=== PATIENT | female | born 1970 | race Caucasian/White ===

== ENCOUNTER 2021-09-18 17:30 | Emergency (ER) | payer MEDICARE, OTHER ==
[~2021-09-18] VITALS: Ht 154.9 cm; Wt 98.0 kg
[2021-09-18 17:46] VITALS: BP 154/93
[2021-09-18] MEDS ORDERED: BACITRACIN OINT 500 UNITS/GM PKT TP ONE (18:35)
[2021-09-18] MEDS ORDERED: AMOX-1000 PO (18:49)
[2021-09-18] MEDS ORDERED: IBUP-2213 PO (18:49)
[2021-09-18 19:01] VITALS: BP 154/83
== END 2021-09-18 19:05 | disposition home or self-care (01) ==
LOC: MED 17:30
DX: S91.052A Open bite, left ankle, initial encounter (principal); Z88.2 Allergy status to sulfonamides; W54.0XXA Bitten by dog, initial encounter; Y93.89 Activity, other specified; Y92.89 Other specified places as the place of occurrence of the external cause; Y99.8 Other external cause status
CPT/HCPCS: 99283

== ENCOUNTER 2023-03-08 14:02 | Emergency (ER) | payer MEDICARE, OTHER ==
[~2023-03-08] VITALS: Ht 154.9 cm; Wt 98.9 kg
[~2023-03-08 14:02] MED LIST: AMOX-1000 PO; IBUP-2213 PO
[2023-03-08 14:27] VITALS: BP 124/80; PULSE 84; RESP 20; TEMP 98; O2SAT 100
[2023-03-08] MEDS ORDERED: KETOROLAC 30 MG/ML VIAL IM ONE (15:30)
[2023-03-08 15:39] LABS: APPEARANCE,URINE CLEAR (CLEAR); BILIRUBIN,URINE NEGATIVE (NEGATIVE); BLOOD, URINE NEGATIVE (NEGATIVE); COLOR,URINE YELLOW (YELLOW); LEUKOCYTE ESTERASE ,URINE TRACE (NEGATIVE); NITRITE, URINE NEGATIVE (NEGATIVE); UGLUCOSE NEGATIVE (NEGATIVE)
[2023-03-08 15:42] LABS: RBC,URINE 0-5 /HPF (0-5); TRICHOMONAS,URINE None Seen /HPF (None Seen); YEAST,URINE None Seen /HPF (None Seen)
[2023-03-08] MEDS ORDERED: PHEN-1877 PO (16:21)
[2023-03-08] MEDS ORDERED: CEPH-588 PO (16:21)
[2023-03-08] MEDS ORDERED: KETOROLAC 30 MG/ML VIAL ONE (16:44)
[2023-03-08 16:55] VITALS: BP 116/70; PULSE 74; RESP 17; O2SAT 98
--- NOTE | 2023-03-08 16:55 | NUR ---
Patient discharged with v/s stable. Written and verbal after care instructions given and explained. Patient alert, oriented and verbalized understanding of instructions. Ambulatory with steady gait. All questions addressed prior to discharge. ID band removed. Patient advised to follow up with PMD. Rx of KEFLEX, PYRIDIUM given. Patient educated on indication of medication including possible reaction and side effects. Opportunity to ask questions provided and answered.
== END 2023-03-08 16:55 | disposition home or self-care (01) ==
LOC: MED 14:02
DX: N39.0 Urinary tract infection, site not specified (principal); E11.9 Type 2 diabetes mellitus without complications; Z88.2 Allergy status to sulfonamides; Z79.4 Long term (current) use of insulin; Z79.899 Other long term (current) drug therapy
CPT/HCPCS: 81001; 81025; 87086; 96372; 99283; J1885